=== PATIENT | female | born 1990 | race Caucasian/White ===

== ENCOUNTER 2016-10-28 15:32 | Emergency (ER) | payer OTHER ==
[~2016-10-28] VITALS: Ht 154.9 cm; Wt 84.1 kg
[~2016-10-28 15:32] MED LIST: Paxil
[2016-10-28 15:45] VITALS: BP 125/82; PULSE 62; RESP 16; O2SAT 98
[2016-10-28 16:14] LABS: BASOPHILS % (AUTO) 0.2 % (0-3); EOSINOPHILS % (AUTO) 0.7 % (0-5); MONOCYTES % (AUTO) 7.1 % (4-12); Mean Corpuscular Hemoglobin 31.8 pg (27.0-35.0); NEUTROPHILS % (AUTO) 72.4 % (40-74); Platelet Count 335 bil/L (150-400)
[2016-10-28 16:37] LABS: Magnesium 2.2 mg/dL (1.6-2.6)
[2016-10-28 17:56] LABS: APPEARANCE,URINE CLEAR (CLEAR,HAZY); COLOR,URINE YELLOW (YELLOW); PH,URINE 6.5 (5.0-8.0)
[2016-10-28 17:57] LABS: OCCULT BLOOD,URINE MODERATE (NEGATIVE); UROBILINOGEN,URINE NORMAL (NORMAL)
--- NOTE | 2016-10-28 18:22 | ED.REPORT ---
HPI-Abd Pain F Under 40 Date of Service Oct 28, 2016 ED Provider: Josephine Smith MD Ms. Forde is a 26 y/o woman who presents today for LUQ and left flank pain for 2-3 days that has worsened today. She hasn't eaten in 2 days. It is constant and like "sharp, long thousand needles going into that area" with a little stinging. When she bends forward, it makes it worse. She tried taking ibuprofen and it helped with the pain a little. She is nauseous but does not have vomiting. She has a subjective fever. No diarrhea or constipation. No hematochezia or melena. No hematuria, dysuria, or urinary frequency. Last period 09/26/2016, usually irregular. Sexually active and uses condoms consistently. No new sexual partners or vaginal discharge. She gets Depo shot and hasn't missed a dose. Nursing Notes Stated Complaint: ABDOMINAL PAIN/SWEATING Chief Complaint: Female Abdominal Pain Nursing Notes Reviewed: Yes Allergies: Coded Allergies: Penicillins (Verified Allergy, Severe, FACE SWELLING, 04/24/15) Scheduled PRN Ondansetron ODT (Ondansetron ODT) 4 Mg Tab.rapdis 4 MG PO Q8H PRN PRN For Nausea Miscellaneous Medications ([Paxil]) General Time Seen by MD: 18:17 Chief Complaint Abdominal pain Hx Obtained From: Patient Location: : LUQ Severity: Current: Pain level 7 out of 10 Severity: Maximum: Pain level 10 out of 10 Associated with: Reports: Back pain, Nausea, Denies: Constipation, Diarrhea, Dysuria, Hematochezia, Hematuria, Urinary tract symptoms, Vaginal discharge, Vomiting Past Medical History Past Medical History Positive for BRCA1 gene Fatty liver disease Pt denies any other history Past Surgical History Reports: Tonsillectomy Smoking History Current Every Day Smoker Social History Alcohol Use: "Social" Drug Use: Denies drug use Other Social History: Good social support, Local resident Ambulatory Status Independent Review of Systems Basic Review of Systems Hematologic: No bleeding, No bruising Psychiatric: Normal thought content Constitutional: Reports: Chills, Fever Respiratory: Reports: Non-productive cough Cardiovascular: Denies: Chest pain GI: Reports: Abdominal pain, Anorexia, Nausea, Denies: Bloody/tarry stool, Constipation, Diarrhea, Hematochezia, Vomiting Female: Reports: Flank pain, Denies: Dysuria, Hematuria, Pelvic pain, , Urinary frequency, Urinary urgency, Vaginal discharge Musculoskeletal: Reports: Back pain, Denies: Extremity pain, Neck pain Physical Exam Initial Vital Signs Vital Signs (First) Date Time Temp Pulse Resp B/P Pulse Ox O2 Delivery O2 Flow Rate FiO2 10/28/16 15:45 36.5 62 16 125/82 98 Room Air Initial VS: Reviewed Head / Eyes: Atraumatic, Normocephalic, PERRL ENT: Mucous membranes moist, Conjunctiva normal, No scleral icterus Neck: Supple, Non-tender, Full range of motion Extremities: Vascular intact, Neuro intact, No swelling, No tenderness Skin: Warm, Dry, No cyanosis Neurologic: Alert, Oriented, Nonfocal Psychiatric: Mood/affect normal, Behavior normal, Normal thought content Respiratory / Chest: Breath sounds NL, Breath sounds = bilat, No respiratory distress, No rales, No rhonchi, No wheezing Cardiovascular: Heart rate NL, Regular rhythm, Heart sounds NL, No gallop, No murmurs, No rubs Abdomen: Atraumatic, Soft, No guarding, No rebound, BS normoactive, No distention, No hernia, No palpable mass, No pulsatile mass Tenderness/Guarding/Rebound: Positive: Tender LUQ... (Mild) Organomegaly / Mass / Hernia: Negative: Hepatomegaly, Splenomegaly Positive CVA tenderness on left Interpretation & Diagnostics Interpretation & Diagnostics: Urine test is negative CT KUB: IMPRESSION: 1. No hydronephrosis nephrolithiasis, hydroureter, or ureterolithiasis. 2. No acute intra-abdominal findings. Normal appendix. Dictated by: Lesa Morris M.D. on 10/28/2016 at 20:03 Approved by: Lesa Morris M.D. on 10/28/2016 at 20:03 Lab Results Interpretation Result Diagram: 10/28/16 1602 10/28/16 1602 Test 10/28/16 16:02 10/28/16 17:32 White Blood Count 14.2th/mm3 (3.8-10.1) Red Blood Count 4.97mil/mm3 (3.90-5.20) Hemoglobin 15.8g/dL (12.0-15.6) Hematocrit 45.7% (35.0-46.0) Mean Corpuscular Volume 92.0fL (81-100) Mean Corpuscular Hemoglobin 31.8pg (27.0-35.0) Mean Corpuscular Hemoglobin Concent 34.6% (32.0-37.0) Red Cell Distribution Width 12.2% (12.3-15.4) Platelet Count 335bil/L (150-400) Neutrophils (%) (Auto) 72.4% (40-74) Lymphocytes (%) (Auto) 19.3% (14-46) Monocytes (%) (Auto) 7.1% (4-12) Eosinophils (%) (Auto) 0.7% (0-5) Basophils (%) (Auto) 0.2% (0-3) Sodium Level 141mEq/L (134-144) Potassium Level 4.3mEq/L (3.5-5.2) Chloride Level 101mEq/L (97-108) Carbon Dioxide Level 27mmol/L (18-29) Blood Urea Nitrogen 13mg/dL (6-20) Creatinine 0.80mg/dL (0.57-1.00) Estimat Glomerular Filtration Rate 125mL/min (>59) Glucose Level 100mg/dL (60-99) Calcium Level 9.5mg/dL (8.5-10.1) Magnesium Level 2.2mg/dL (1.6-2.6) Total Bilirubin 0.5mg/dL (0.0-1.2) Aspartate Amino Transf (AST/SGOT) 19U/L (0-50) Alanine Aminotransferase (ALT/SGPT) 25U/L (0-32) Alkaline Phosphatase 81U/L (25-150) Total Protein 7.4g/dL (6.4-8.4) Albumin 4.7g/dL (3.4-5.0) Lipase 27U/L (13-60) Hold Yan Top Tube Received (Received) Urine Color Yellow (YELLOW) Urine Appearance Clear (CLEAR,HAZY) Urine pH 6.5 (5.0-8.0) Urine Specific Williams 1.020 (1.003-1.035) Urine Protein Negativemg/dL (NEG,TRACE) Urine Glucose (UA) Negativemg/dL (NEGATIVE) Urine Ketones Negativemg/dL (NEGATIVE) Urine Occult Blood Moderate (NEGATIVE) Urine Nitrite Negative (NEGATIVE) Urine Bilirubin Negative (NEGATIVE) Urine Urobilinogen Normalmg/dL (NORMAL) Urine Leukocyte Esterase Negative (NEGATIVE) Urine RBC 3-10/hpf (0-2) Urine WBC 0-5/hpf (0-5) Urine Epithelial Cells None/hpf (NONE-MOD) Urine Crystals None seen (NONE SEEN) Urine Bacteria Few/hpf (NONE-FEW) Urine Hyaline Casts None/lpf (NONE) Urine Granular Casts None seen (NONE SEEN) Urine Waxy Casts None seen (NONE SEEN) Urine Red Blood Cell Casts None seen (NONE SEEN) Urine White Blood Cell Casts None seen (NONE SEEN) Urine Mucus None seen (None Seen) Urine Trichomonas None seen (NONE SEEN) Urine Yeast None (NONE SEEN) Urinalysis Comment None Urine Culture Reflexed Indicated Hold Urine Received (Received) Re-Eval/Medical Decision Med Decision/Clinical Course Med Decision/Clinical Course: 1. LUQ and left flank pain -WBC mildly elevated at 14.2 -Moderate occult blood in urine analysis -CT KUB shows no nephrolithiasis -Pt likely passed a kidney stone already Re-Evaluation/Progress #1: Time of Eval: 20:17 Patient Status: Pain improved Re-Evaluation/Progress #2: Time of Eval: 20:30 Patient Status: Condition improved Re-Evaluation/Progress Note: Patient is rechecked. She is informed of her results. All of the patient's questions are addressed. She understands and agrees with the treatment plan. DDx includes but not limited to: nephrolithiasis, UTI, pyleonephritis, GERD, gastritis, gastric ulcer, lower lobe pneumonia, musculoskeletal pain Counseled Regarding: Diagnosis, Need for follow-up, When/why to return to ED Discharge & Departure Shift Change Sign-Out Response to Therapy: Improved Primary Impression: Left upper quadrant pain Additional Impression: Left flank pain Ruled Out: Nephrolithiasis Disposition: Home Discharge Condition All VS Reviewed: Yes Condition: Improved Patient Instructions: Acute Abdominal Pain (ED), Nephrolithiasis (ED) Additional Instructions: The CT scan done tonight did not show a kidney stone. It is possible that you already passed a kidney stone. Continue to drink plenty of fluids. You can take Advil or Tylenol available [id number] as needed for pain according to the packaging directions. You can take Zofran 4 mg by dissolving 1 tablet on your tongue every 8 hours as needed for nausea. Follow up with your primary care provider in 7-10 days. Seek medical attention if you have any of the following: -Fever (>100.4 degrees F) -Continuous vomiting or diarrhea -Worsening abdominal pain -Blood in your urine Referrals: Barbara Brandt PA-C (PCP) 1 Week [facility] Scribe Attestation Portions of this note were transcribed by Giovana Abad. I, Dr. Smith personally performed the history, physical exam and medical decision-making; I reviewed and confirmed the accuracy of the information in the transcribed note. Signed by: Abigail Gonzalez, 10/28/16 2300. Attending Statment 26-year-old female here with left upper quadrant and left flank pain. Exam: Gen: WA, NAD, A&Ox4 CV: RRR, no m/r/g Resp: CTAB, no wheezing Abd: soft, non tender, non distended, no rebound/guarding mild left-sided CVA tenderness to palpation Ext: no clubbing, cyanosis, edema Differential diagnosis includes but is not limited to pyelonephritis versus urinary tract infection versus pancreatitis versus kidney stone. Patient does not have evidence of urinary tract infection, however, she does have a small amount of red blood cells in her urine concerning for stone. Her CT scan was negative for stone. It is possible she is alert he passed a stone. Her pain is now well controlled. She has not vomited in the emergency department. She is amenable to discharge at this time with follow-up with her primary care physician, and [facility] for home. Given very strict return precautions copies to: Barbara Brandt PA-C, Marissa L DO Oct 28, 2016 18:22 GIOVANA ABAD Oct 28, 2016 23:14 Josephine Smith MD Oct 29, 2016 03:44
[2016-10-28] MEDS ORDERED: 0.9% Sodium Chloride 1,000 ML IV ONE (18:55)
[2016-10-28] MEDS ORDERED: Ondansetron 2 mg/mL 2 mL Inj IVPUSH ONE (18:55)
--- NOTE | 2016-10-28 20:05 | DRSVH ---
PROCEDURE: CT KUB ([id number]) INDICATIONS: left flank pain TECHNIQUE: Noncontrast 5 mm thick sections acquired from the diaphragms to the symphysis. 5 mm thick coronal an d sagittal reformats were then performed. For radiation dose reduction, the following was used: aut omated exposure control, adjustment of mA and/or kV according to patient size. COMPARISON: None. FINDINGS: Image quality: Excellent. Lung bases: Lung bases are clear. Heart size is normal. Urinary system: Both kidneys are normal in size. No kidney stones. No hydronephrosis or perinephri c fat stranding. Both ureters appear non-dilated throughout their expected courses. Bladder wall th ickness is normal; no calcified bladder stones. The uterus and ovaries are grossly unremarkable on th is noncontrast study. Other solid organs: Liver and spleen are normal in size. Gallbladder is unremarkable. Pancreas is normal in contours. No adrenal nodules. Peritoneum and bowel: Unenhanced bowel loops demonstrate normal wall thickness and caliber. The appe ndix is thin walled and gas filled. No free fluid or air. Nodes and vessels: No retroperitoneal or mesenteric adenopathy by size criteria. Aorta and inferior vena cava are normal in caliber. Abdominal wall: No ventral hernias. Pelvis: No free pelvic fluid. No inguinal hernias or adenopathy. Bones: No suspicious bony lesions. No vertebral body compression fractures. IMPRESSION: 1. No hydronephrosis nephrolithiasis, hydroureter, or ureterolithiasis. 2. No acute intra-abdominal findings. Normal appendix. Dictated by: Lesa Morris M.D. on 10/28/2016 at 20:03 Approved by: Lesa Morris M.D. on 10/28/2016 at 20:03
[2016-10-28 20:16] VITALS: BP 122/80; PULSE 65; RESP 16; O2SAT 97
[2016-10-28] MEDS ORDERED: ONDA4TAB12 PO (20:25)
== END 2016-10-28 20:40 | disposition home or self-care (01) ==
LOC: SED 15:32
DX: R10.12 Left upper quadrant pain (principal); R10.32 Left lower quadrant pain; F17.200 Nicotine dependence, unspecified, uncomplicated; Z88.0 Allergy status to penicillin
CPT/HCPCS: 36415; 74176; 80053; 81000; 81025; 83690; 83735; 85025; 87086; 87088; 96361; 96374; 96375; 99285; J2405; J7030